=== PATIENT | female | born 1950 | race Caucasian/White ===

== ENCOUNTER → 2017-02-24 | Outpatient (CLI) | payer OTHER ==
[~2017-02-24] MED LIST: ACET325T96 PO; ACET500C6 PO; ATV/1 PO; CALC600T9 PO; CHOL400T; FURO-85 PO; GLUCOSAMINE/MSM; LACT10CA3 PO; LANS30CA63 PO; LEVO1TAB PO; LEVO88TA PO; LOSA1TAB38 PO; METO-478 PO; MULT-506 PO; PRD/1 PO; PRM625 PO; SUCR1TAB29 PO; XRL10 PO
[2017-02-24 12:53] LABS: BLOOD UREA NITROGEN 26 mg/dl (7-18); BUN/CREATININE RATIO 18.3 (10-20); CALCIUM 9.3 mg/dl (8.5-10.1); CARBON DIOXIDE 29 mmol/L (21-32); CHLORIDE 97 mmol/L (98-107); CREATININE 1.44 mg/dl (0.60-1.20); GLUCOSE 102 mg/dl (70-99); PHOSPHORUS 4.4 mg/dl (2.5-4.9); POTASSIUM 4.8 mmol/L (3.5-5.1); SODIUM 134 mmol/L (136-145)
== END | disposition home or self-care (01) ==
LOC: C.LAB1850 10:21
PROVIDERS: ATTEND Internal Medicine Nephrology
DX: I10 Essential (primary) hypertension (principal); M32.9 Systemic lupus erythematosus, unspecified; N18.3 Chronic kidney disease, stage 3 (moderate); R60.9 Edema, unspecified; E87.1 Hypo-osmolality and hyponatremia